=== PATIENT | female | born 1980 | race Caucasian/White ===

== ENCOUNTER 2016-11-30 22:29 | Inpatient (IN) | payer MEDICAID ==
[~2016-11-30] VITALS: Ht 162.6 cm; Wt 51.3 kg
[2016-11-30] MEDS ORDERED: ALBU8HFA IH (22:47)
[2016-12-01] VITALS (10 sets, daily range): BP systolic 101–120; BP diastolic 62–90
[2016-12-01] MEDS ORDERED: DiphenhydrAMINE HCL 50 MG/ML VIAL IM ONE
[2016-12-01] MEDS ORDERED: HALOPERIDOL LACTATE 5 MG/ML VIAL IM ONE
[2016-12-01] MEDS ORDERED: LORazepam 2 MG/ML VIAL IM ONE
[2016-12-01 00:24] LABS: ANION GAP 16 mmol/L (8-16); BASOPHILS % (AUTO) 0.5 % (0.0-2.0); CALCIUM, TOTAL 7.8 mg/dL (8.8-10.5); CARBON DIOXIDE 23 mmol/L (22-29); CHLORIDE 105 mmol/L (98-107); CREATININE 0.64 mg/dL (0.60-1.30); EOSINOPHILS % (AUTO) 2.1 % (1.0-6.0); GLOMERULAR FILTR. RATE CALC > 60 mL/min (>60); HEMOGLOBIN 14.8 g/dL (12.0-16.0); LYMPHOCYTES # (AUTO) 2.1 K/uL (1.0-4.8); LYMPHOCYTES % (AUTO) 32.1 % (22.0-44.0); MEAN CORPUSCULAR HGB CONC 33.7 G/dL (31.0-37.0); MEAN CORPUSCULAR VOLUME 101 fL (80-100); MONOCYTES # (AUTO) 0.6 K/uL (0.1-1.0); MONOCYTES % (AUTO) 9.1 % (2.0-9.0); NEUTROPHILS # (AUTO) 3.7 K/uL (1.8-7.7); NEUTROPHILS % (AUTO) 56.2 % (40.0-70.0); PLATELET COUNT (AUTO) 271 K/uL (150-450); POTASSIUM 3.3 mmol/L (3.5-5.1); RED BLOOD CELL COUNT(AUTO) 4.36 MIL/uL (4.00-5.20); RED CELL DISTRIBUTION WIDTH 14.1 % (11.5-14.5); SODIUM SERUM 144 mmol/L (136-145); UREA NITROGEN, BLOOD 8 mg/dL (7-18); WHITE BLOOD COUNT (AUTO) 6.6 K/uL (4.5-11.0)
[2016-12-01 00:33] LABS: ALANINE AMINOTRANSFERASE 85 U/L (12-78); ALBUMIN 3.6 g/dL (3.4-5.0); ASPARTATE AMINOTRANSFERASE 100 U/L (15-37); BILIRUBIN,TOTAL 0.3 mg/dL (0.1-1.0); TOTAL PROTEIN, SERUM 7.3 g/dL (6.4-8.2)
[2016-12-01 01:25] LABS: RBC MORPHOLOGY COMMENT ABNORMAL RBC MORPH
[2016-12-01] MEDS ORDERED: POTASSIUM CHLORIDE 10% 40 MEQ/30 ML LIQUID UDCUP PO ONE (01:30)
[2016-12-01] MEDS ORDERED: HALOPERIDOL 5 MG TABLET PO PRN (02:45)
[2016-12-01] MEDS ORDERED: ZOLPIDEM TARTRATE 10 MG TABLET PO PRN (02:45)
[2016-12-01] MEDS ORDERED: HydrOXYzine PAMOATE 50 MG CAPSULE PO PRN (12:45)
[2016-12-01] MEDS ORDERED: CYANOCOBALAMIN 1,000 MCG/ML VIAL IM ONE (12:45)
[2016-12-01] MEDS ORDERED: GuaiFENesin/D-METHORPHAN [SUGAR-FREE] 200-20MG/10 ML SYRUP UDCUP PO PRN (12:45)
[2016-12-01] MEDS ORDERED: LOPERAMIDE HCL 2 MG CAPSULE PO PRN (12:45)
[2016-12-01] MEDS: ChlordiazePOXIDE HCL 25 MG CAPSULE PO PRN ×2 (14:23→19:02)
[2016-12-01] MEDS: NICOTINE 14 MG/24 HOUR PATCH TD SCH (14:57)
[2016-12-01] MEDS ORDERED: PNEUMOCOCCAL VACCINE POLYVALENT 0.5 ML VIAL [PPSV23] IM ONE (15:15)
[2016-12-01] MEDS ORDERED: INFLUENZA VIRUS VACCINE QVS 2016-17 (3YR+)/PF 60 MCG/0.5 ML SYRINGE IM ONE (15:15)
[2016-12-01] MEDS: THIAMINE HCL 100 MG TABLET PO SCH (19:01)
[2016-12-02] VITALS (7 sets, daily range): BP systolic 107–116; BP diastolic 78–84
[2016-12-02] MEDS ORDERED: PNEUMOCOCCAL VACCINE POLYVALENT 0.5 ML VIAL [PPSV23] IM ONE (03:45)
[2016-12-02] MEDS ORDERED: ChlordiazePOXIDE HCL 25 MG CAPSULE PO PRN (07:00)
[2016-12-02] MEDS: MAGNESIUM OXIDE 400 MG TABLET PO SCH (08:32)
[2016-12-02] MEDS: MULTIVITAMINS WITH MINERALS, THERAPEUTIC TABLET PO SCH (08:33)
[2016-12-02] MEDS: THIAMINE HCL 100 MG TABLET PO SCH ×2 (08:33→16:27)
[2016-12-02] MEDS: ChlordiazePOXIDE HCL 25 MG CAPSULE PO SCH ×4 (08:33→20:07)
[2016-12-02] MEDS: NICOTINE 14 MG/24 HOUR PATCH TD SCH (08:33)
[2016-12-02] MEDS: GABAPENTIN 300 MG CAPSULE PO SCH ×3 (08:33→16:27)
[2016-12-02] MEDS: FOLIC ACID 1 MG TABLET PO SCH (08:33)
[2016-12-02] MEDS ORDERED: FLUoxetine HCL 20 MG CAPSULE PO SCH (09:00)
[2016-12-03] VITALS (7 sets, daily range): BP systolic 103–118; BP diastolic 67–79
[2016-12-03] MEDS: LORazepam 2 MG TABLET PO PRN ×2 (03:24→17:40)
[2016-12-03] MEDS: MAGNESIUM OXIDE 400 MG TABLET PO SCH (08:41)
[2016-12-03] MEDS: NICOTINE 14 MG/24 HOUR PATCH TD SCH (08:41)
[2016-12-03] MEDS: MULTIVITAMINS WITH MINERALS, THERAPEUTIC TABLET PO SCH (08:41)
[2016-12-03] MEDS: FLUoxetine HCL 20 MG CAPSULE PO SCH (08:41)
[2016-12-03] MEDS: THIAMINE HCL 100 MG TABLET PO SCH ×2 (08:41→16:20)
[2016-12-03] MEDS: GABAPENTIN 300 MG CAPSULE PO SCH ×3 (08:41→16:20)
[2016-12-03] MEDS: FOLIC ACID 1 MG TABLET PO SCH (08:41)
[2016-12-03] MEDS: ChlordiazePOXIDE HCL 25 MG CAPSULE PO SCH ×4 (08:41→20:27)
[2016-12-04 02:21] VITALS: BP 102/68
[2016-12-04 03:20] VITALS: BP 104/72
[2016-12-04] MEDS ORDERED: ChlordiazePOXIDE HCL 10 MG CAPSULE PO PRN (07:00)
[2016-12-04] MEDS: MULTIVITAMINS WITH MINERALS, THERAPEUTIC TABLET PO SCH (08:40)
[2016-12-04] MEDS: GABAPENTIN 300 MG CAPSULE PO SCH ×3 (08:40→16:34)
[2016-12-04] MEDS: FOLIC ACID 1 MG TABLET PO SCH (08:40)
[2016-12-04] MEDS: MAGNESIUM OXIDE 400 MG TABLET PO SCH (08:40)
[2016-12-04] MEDS: ChlordiazePOXIDE HCL 10 MG CAPSULE PO SCH ×3 (08:40→16:34)
[2016-12-04] MEDS: FLUoxetine HCL 20 MG CAPSULE PO SCH (08:41)
[2016-12-04] MEDS: NICOTINE 14 MG/24 HOUR PATCH TD SCH (08:41)
[2016-12-04] MEDS: THIAMINE HCL 100 MG TABLET PO SCH ×2 (08:44→16:34)
[2016-12-04 08:48] VITALS: BP 101/67
[2016-12-04 14:17] VITALS: BP 103/67
[2016-12-04] MEDS ORDERED: FLUO-191 PO (15:58)
[2016-12-04] MEDS ORDERED: LIB10 PO (15:58)
[2016-12-04] MEDS ORDERED: GABA-531 PO (15:58)
[2016-12-04 16:21] VITALS: BP 110/68
[2016-12-05] MEDS ORDERED: ChlordiazePOXIDE HCL 10 MG CAPSULE PO PRN (07:00)
== END 2016-12-04 17:10 | disposition home or self-care (01) | DRG 885 ==
LOC: EMS 22:35 → B2S 12-01 13:15
PROVIDERS: ADMIT Psychiatry & Neurology Psychiatry; ATTEND Psychiatry & Neurology Psychiatry
DX: F33.2 Major depressive disorder, recurrent severe without psychotic features (principal); R45.851 Suicidal ideations; E87.6 Hypokalemia; F10.229 Alcohol dependence with intoxication, unspecified; F12.90 Cannabis use, unspecified, uncomplicated; F15.90 Other stimulant use, unspecified, uncomplicated; J45.909 Unspecified asthma, uncomplicated; F17.210 Nicotine dependence, cigarettes, uncomplicated; Y90.8 Blood alcohol level of 240 mg/100 ml or more; K70.9 Alcoholic liver disease, unspecified; Z28.21 Immunization not carried out because of patient refusal; Z79.899 Other long term (current) drug therapy; Z59.0 Homelessness; Z91.5 Personal history of self-harm; Z78.1 Physical restraint status
CPT/HCPCS: 84132; 90471; 96372; 99291; A0429; G0480; J1200; J1630; J2060; J3420